=== PATIENT | female | born 1945 | race Caucasian/White ===

== ENCOUNTER → 2021-02-10 | Outpatient (CLI) | payer MEDICARE ==
[~2021-02-10] MED LIST: ACET325T14 PO; ASCO100018 PO; CALCIUM MAG ZINC PO; FISH OIL PO; FOLIC ACID PO; LUTEIN-ZEAXANTHIN PO; MAGNESIUM PO; MULT-516 PO; PARO10TA56 PO; TRAZ150T62 PO; TUMERIC PO; VITA1TAB19 PO; VITAMIN D PO; [UNRECOGNIZED DRUG - OTHER] PO
== END | disposition home or self-care (01) ==
LOC: CFH 10:14
PROVIDERS: ATTEND Family Medicine
DX: M81.0 Age-related osteoporosis without current pathological fracture (principal); N95.9 Unspecified menopausal and perimenopausal disorder
CPT/HCPCS: 77080

== ENCOUNTER 2021-06-18 09:51 | Outpatient (CLI) | payer MEDICARE ==
[2021-06-18] MEDS ORDERED: MELA5TAB14 PO (10:49)
[2021-06-18] MEDS ORDERED: LOPE2TAB28 PO (10:49)
[2021-06-18] MEDS ORDERED: HYDR-2995 PO (10:49)
[2021-06-18] MEDS ORDERED: WHEA1POW5 PO (10:49)
== END 2021-06-18 23:59 | disposition home or self-care (01) ==
LOC: STAR 09:51
PROVIDERS: ATTEND Orthopaedic Surgery Hand Surgery
DX: Z01.818 Encounter for other preprocedural examination (principal); M65.312 Trigger thumb, left thumb; I51.7 Cardiomegaly; R94.31 Abnormal electrocardiogram [ECG] [EKG]
CPT/HCPCS: 93005

== ENCOUNTER 2021-06-22 05:31 | Day surgery (SDC) | payer MEDICARE ==
[~2021-06-22] VITALS: Ht 152.4 cm; Wt 52.0 kg
[~2021-06-22 05:31] MED LIST changes: +HYDR-2995 PO; +LOPE2TAB28 PO; +MELA5TAB14 PO; +WHEA1POW5 PO
[2021-06-22 06:00] VITALS: BP 172/75
[2021-06-22] MEDS ORDERED: CHLORHEXIDINE 15 ML UDC PO ONE (06:00)
[2021-06-22] MEDS ORDERED: LACTATED RINGERS 1,000 ML IV SCH (06:00)
[2021-06-22] MEDS ORDERED: LIDOCAINE 1%, 20ML ONE (06:09)
[2021-06-22] MEDS ORDERED: BUPIVACAINE/PF 0.5% ONE (06:09)
[2021-06-22] MEDS ORDERED: FENTANYL PF 100 MCG/2ML ONE (06:19)
[2021-06-22] MEDS ORDERED: CLINDAMYCIN 150 MG/ML, 6ML ONE (06:45)
[2021-06-22] MEDS ORDERED: LABETALOL 5MG/ML, 20ML IV PRN (07:00)
[2021-06-22] MEDS ORDERED: hydrALAzine 20 MG/ML, 1ML IV PRN (07:00)
[2021-06-22] MEDS ORDERED: ONDANSETRON 2MG/ML, 2ML IVPush PRN (07:00)
[2021-06-22] MEDS ORDERED: ACETAMINOPHEN 325 MG TABLET PO PRN (07:00)
[2021-06-22] MEDS ORDERED: OXYcodone 5 MG/5 ML ORAL.SOL UDC PO PRN (07:00)
[2021-06-22] MEDS ORDERED: FENTANYL PF 100 MCG/2ML IV PRN (07:00)
[2021-06-22] MEDS ORDERED: HYDROmorphone 1 MG/ML, 1ML INJ IVPush PRN (07:00)
[2021-06-22] MEDS ORDERED: morphine SULFATE 10 MG/ML, 1ML IVPush PRN (07:00)
[2021-06-22] MEDS ORDERED: MEPERIDINE/PF 25MG/0.5ML IVPush PRN (07:00)
== END 2021-06-22 08:33 | disposition home or self-care (01) ==
LOC: OUT 05:31
PROVIDERS: ATTEND Orthopaedic Surgery Hand Surgery
DX: M65.312 Trigger thumb, left thumb (principal); F32.9 Major depressive disorder, single episode, unspecified; Z20.822 Contact with and (suspected) exposure to COVID-19; Z79.899 Other long term (current) drug therapy; Z87.891 Personal history of nicotine dependence; Z88.2 Allergy status to sulfonamides; Z88.8 Allergy status to other drugs, medicaments and biological substances; Z98.890 Other specified postprocedural states; Z82.49 Family history of ischemic heart disease and other diseases of the circulatory system; Z80.9 Family history of malignant neoplasm, unspecified
CPT/HCPCS: 26055; 87635; J3010; J7120